=== PATIENT | female | born 1990 | race Caucasian/White ===

== ENCOUNTER 2016-11-28 06:53 | Emergency (ER) | payer SELFPAY ==
[~2016-11-28] VITALS: Ht 165.1 cm; Wt 77.0 kg
[2016-11-28 06:57] VITALS: BP 128/85; PULSE 63; RESP 16; TEMP 98.1; O2SAT 99
[2016-11-28] MEDS ORDERED: SODIUM CHLOR 0.9% 1000 ML INJ 1,000 ML IV SCH (07:19)
[2016-11-28] MEDS ORDERED: [UNRECOGNIZED DRUG - REMARK] PO (07:20)
[2016-11-28] MEDS ORDERED: FAMOTIDINE 20 MG/2 ML VIAL IV PUSH ONE (07:30)
[2016-11-28] MEDS ORDERED: LIDOCAINE VISCOUS 2% SOLN 15 ML UDC PO ONE (07:30)
[2016-11-28] MEDS ORDERED: ALUMINUM/MAGNESIUM/SIMETH 30 ML CUP PO ONE (07:30)
--- NOTE | 2016-11-28 07:47 | RADHPO ---
EXAM DATE/TIME: 11/28/2016 07:30 [facility] COMPARISON: No previous studies available for comparison. INDICATIONS : Chest pains, cough MEDICAL HISTORY : None. SURGICAL HISTORY : None. ENCOUNTER: Initial ACUITY: 1 week PAIN SCORE: 8/10 LOCATION: Bilateral chest FINDINGS: PA and lateral views of the chest demonstrate a normal-sized cardiac silhouette. There is no effusion , consolidation, or pneumothorax. The bones and soft tissues demonstrate no acute abnormality. CONCLUSION: No acute cardiopulmonary abnormality is identified. Shlomo Hernandez MD on November 28, 2016 at 7:45 Board Certified Radiologist. This report was verified electronically.
[2016-11-28 07:51] LABS: BLOOD, URINE TRACE (NEG); GLUCOSE,URINE NEG (NEG); KETONE, URINE NEG (NEG); NITRITE,URINE NEG (NEG)
[2016-11-28 07:52] LABS: AUTOMATED NEUTROPHIL # 5.6 TH/MM3 (1.8-7.7); BASOPHIL % 0.5 % (0.0-2.0); EOSINOPHIL # 0.2 TH/MM3 (0-0.4); EOSINOPHIL % 2.6 % (0.0-4.0); HEMATOCRIT 39.5 % (35.0-46.0); HEMO FLAGS DIFF FINAL; LYMPHOCYTE # 1.6 TH/MM3 (1.0-4.8); MEAN CELL VOLUME 89.8 FL (80.0-100.0); MEAN CORPUSCULAR HEMOGLOBIN 29.5 PG (27.0-34.0); MEAN CORPUSCULAR HGB CONC 32.9 % (32.0-36.0); MONO % 6.1 % (0.0-8.0); NEUT % 70.8 % (16.0-70.0); PLATELET COUNT 183 TH/MM3 (150-450); RED CELL DISTRIBUTION WIDTH 13.2 % (11.6-17.2); WHITE BLOOD COUNT 7.9 TH/MM3 (4.0-11.0)
[2016-11-28 07:57] LABS: METHOD OF COLLECTION CLEAN CATCH; URINE COLOR YELLOW (YELLW/STRAW)
[2016-11-28 07:58] LABS: BACTERIA, URINE MOD /hpf; COMMENT (UR) CULTURE INDICATED; CULTURE IF INDICATED CULTURE INDICATED; RBC, URINE 0-3 /hpf (0-3); SQUAMOUS EPITHELIAL CELL URINE > 8 /hpf (0-5)
[2016-11-28 07:59] LABS: CHLORIDE 108 MEQ/L (98-107); POTASSIUM 4.1 MEQ/L (3.5-5.1); SODIUM (NA) 142 MEQ/L (136-145)
[2016-11-28 08:03] LABS: ANION GAP 7 MEQ/L (5-15); BICARBONATE 26.6 MEQ/L (21.0-32.0); BLOOD UREA NITROGEN 12 MG/DL (7-18)
[2016-11-28 08:06] LABS: ALT (GPT) 21 U/L (10-53); AST (GOT) 23 U/L (15-37); GLOMERULAR FILTRATION RATE 81 ML/MIN (>89)
[2016-11-28 08:08] LABS: TOTAL BILIRUBIN ADULT 0.6 MG/DL (0.2-1.0)
[2016-11-28 08:09] LABS: ALKALINE PHOSPHATASE 60 U/L (45-117)
[2016-11-28] MEDS ORDERED: RANI150C PO (08:25)
[2016-11-28] MEDS ORDERED: CEPH-460 PO (08:25)
--- NOTE | 2016-11-28 08:25 | PD ---
HPI Chief Complaint: Abdominal Pain Time Seen by Provider: 07:10 Travel History International Travel<30 days: No Contact w/Intl Traveler<30days: No Traveled to known affect area: No History of Present Illness HPI 26-year-old woman who presents to the emergency department complaining of intermittent chest pain times years. She states she is only a couple times a year, since moving down to [place] several months ago she's noticed pain worse, every month or couple times a Memorial recently. She started getting an episode this past week with intermittent chest pain and tightness. She's of vomiting for the past 2 days as well. Review of systems also positive for shortness of breath as well as "feeling warm". She also has pain that started in her upper abdomen but radiates throughout the abdomen. No change in her bowel movements. No urinary symptoms. No vaginal discharge. Previous workups the same symptoms have not found any cause. History Past Medical History Narrative Medical Heart murmur Tetanus Vaccination: < 5 Years Influenza Vaccination: No LMP: 11/01/16 Social History Alcohol Use: No Tobacco Use: No (quit one month ago smoked 1 pack cigs every other day) Allergies-Medications (Allergen,Severity, Reaction): Coded Allergies: No Known Allergies (Unverified , 11/28/16) Reported Meds & Prescriptions Reported Meds & Active Scripts Active Reported [anxiety/increase HR] Unknown Strength Unknown Dose PO DIRECTED PRN Review of Systems Except as stated in HPI: all other systems reviewed are Neg Physical Exam Narrative GENERAL: Well-appearing 26-year-old woman, no acute distress. SKIN: Warm and dry. HEAD: Atraumatic. Normocephalic. CARDIOVASCULAR: Regular rate and rhythm. No murmur appreciated. RESPIRATORY: No accessory muscle use. Clear to auscultation. Breath sounds equal bilaterally. GASTROINTESTINAL: Abdomen flat and soft. Mild epigastric tenderness, minimal diffuse tenderness. MUSCULOSKELETAL: No obvious deformities. No edema. NEUROLOGICAL: Awake and alert. No obvious cranial nerve deficits. Motor grossly within normal limits. Normal speech. PSYCHIATRIC: Appropriate mood and affect; insight and judgment normal. Data Data Last Documented VS Vital Signs Date Time Temp Pulse Resp B/P Pulse Ox O2 Delivery O2 Flow Rate FiO2 11/28/16 07:12 16 11/28/16 06:57 98.1 63 128/85 99 Orders Complete Blood Count With Diff (11/28/16 07:01) Comprehensive Metabolic Panel (11/28/16 07:01) Lipase (11/28/16 07:01) Urinalysis - C+S If Indicated (11/28/16 07:01) Ed Urine Pregnancytest Poc (11/28/16 07:01) Electrocardiogram (11/28/16 ) Chest, Pa & Lat (11/28/16 ) Sodium Chlor 0.9% 1000 Ml Inj (Ns 1000 M (11/28/16 07:19) Famotidine Inj (Pepcid Inj) (11/28/16 07:30) Al-Mag Hy-Si 40-40-4 Mg/Ml Liq (Mag-Al P (11/28/16 07:30) Lidocaine 2% Viscous (Xylocaine 2% Visco (11/28/16 07:30) Urine Culture (11/28/16 07:30) Labs Laboratory Tests Test 11/28/16 11/28/16 07:30 07:39 Urine Collection Type CLEAN CATCH Urine Color YELLOW Urine Turbidity SLIGHT Urine pH 6.0 Urine Specific [place] 1.027 Urine Protein NEG mg/dL Urine Glucose (UA) NEG mg/dL Urine Ketones NEG mg/dL Urine Occult Blood TRACE Urine Nitrite NEG Urine Bilirubin NEG Urine Leukocyte Esterase TRACE Urine RBC 0-3 /hpf Urine WBC 25-49 /hpf Urine WBC Clumps OCC Urine Squamous Epithelial > 8 /hpf Cells Urine Bacteria MOD /hpf Microscopic Urinalysis Comment CULTURE INDICATED Urine Collection Time 07:30 White Blood Count 7.9 TH/MM3 Red Blood Count 4.40 MIL/MM3 Hemoglobin 13.0 GM/DL Hematocrit 39.5 % Mean Corpuscular Volume 89.8 FL Mean Corpuscular Hemoglobin 29.5 PG Mean Corpuscular Hemoglobin 32.9 % Concent Red Cell Distribution Width 13.2 % Platelet Count 183 TH/MM3 Mean Platelet Volume 8.4 FL Neutrophils (%) (Auto) 70.8 % Lymphocytes (%) (Auto) 20.0 % Monocytes (%) (Auto) 6.1 % Eosinophils (%) (Auto) 2.6 % Basophils (%) (Auto) 0.5 % Neutrophils # (Auto) 5.6 TH/MM3 Lymphocytes # (Auto) 1.6 TH/MM3 Monocytes # (Auto) 0.5 TH/MM3 Eosinophils # (Auto) 0.2 TH/MM3 Basophils # (Auto) 0.0 TH/MM3 CBC Comment DIFF FINAL Differential Comment Sodium Level 142 MEQ/L Potassium Level 4.1 MEQ/L Chloride Level 108 MEQ/L Carbon Dioxide Level 26.6 MEQ/L Anion Gap 7 MEQ/L Blood Urea Nitrogen 12 MG/DL Creatinine 0.85 MG/DL Estimat Glomerular Filtration 81 ML/MIN Rate Random Glucose 99 MG/DL Calcium Level 8.0 MG/DL Total Bilirubin 0.6 MG/DL Aspartate Amino Transf 23 U/L (AST/SGOT) Alanine Aminotransferase 21 U/L (ALT/SGPT) Alkaline Phosphatase 60 U/L Total Protein 6.7 GM/DL Albumin 3.3 GM/DL Lipase 129 U/L [facility] Medical Decision Making Medical Screen Exam Complete: Yes Emergency Medical Condition: Yes Interpretation(s) My review of EKG: Sinus bradycardia at a rate of 54, normal axis, normal intervals, no acute ischemia. LABS: CBC unremarkable. CMP unremarkable. Lipase normal. UA with significant pyuria. Chest x-ray negative. Differential Diagnosis Gastritis, peptic ulcer disease, pancreatitis, UTI, , other Narrative Course Medical decision making Is a well 26-year-old woman with intermittent chest pain ongoing for years. Worse over the past several months. She looks well. X-ray EKG are all unremarkable. Suspect gastritis. She has some pyuria. Denies any vaginal discharge or vaginal bleeding. I don't think a UTI fully explains her symptoms. Will treat for cystitis. Given the pyuria, diagnostic uncertainty, we'll add GC chlamydia to urine. Diagnosis Primary Impression: Gastritis Qualified Code: K29.00 - Other acute gastritis without hemorrhage Additional Impression: Cystitis Additional Instructions: Take ranitidine as prescribed. Use Tylenol as needed for pain. Take antibiotics as prescribed. Return to the emergency department for any new or worsening symptoms. Med/Other Pt SpecificInfo: Prescription(s) given Scripts Cephalexin (Keflex)500 Mg [id number] Mg PO Q8H 7 Days Ref 0 Prov:John Garcia MD 11/28/16 Ranitidine 150 Mg [id number] Mg PO BID #60 CAP Prov:John Garcia MD 11/28/16 Disposition: 01 DISCHARGE HOME Condition: Stable John Garcia MD Nov 28, 2016 08:25
[2016-11-28 09:06] VITALS: BP 137/82
[2016-11-28 13:52] LABS: CHLAMYDIA PCR NOT DETECTED (NOT DETECT); NEISSERIA PCR NOT DETECTED (NOT DETECT)
--- NOTE | 2016-11-28 23:13 | EKG ---
Date Performed: 11/28/2016 Time Performed: 07:59:12 PTAGE: 26 years EKG: Sinus bradycardia Normal ECG except for rate NO PREVIOUS TRACING DOCTOR: Candido Roblero Interpretating Date/Time 11/28/2016 23:11:56
== END 2016-11-28 09:14 | disposition home or self-care (01) ==
LOC: PHED 06:53
DX: K29.00 Acute gastritis without bleeding (principal); N30.90 Cystitis, unspecified without hematuria; R06.02 Shortness of breath; R10.84 Generalized abdominal pain; R00.1 Bradycardia, unspecified; R01.1 Cardiac murmur, unspecified; Z87.891 Personal history of nicotine dependence
CPT/HCPCS: 71020; 80053; 81001; 83690; 84703; 85025; 87086; 87491; 87591; 93005; 96361; 96374; 99285; J7030

== ENCOUNTER 2017-06-19 06:33 | Emergency (ER) | payer SELFPAY ==
[~2017-06-19] VITALS: Ht 165.1 cm; Wt 77.5 kg
[~2017-06-19 06:33] MED LIST: CEPH-460 PO; RANI150C PO; [UNRECOGNIZED DRUG - REMARK] PO
[2017-06-19 06:35] VITALS: BP 136/79; PULSE 68; RESP 16; TEMP 98; O2SAT 100
[2017-06-19] MEDS ORDERED: LORA-392 PO (07:02)
[2017-06-19 07:18] VITALS: BP_SYST 121; BP_SYST 124; BP_DIAS 72
[2017-06-19 07:19] VITALS: RESP 19; O2SAT 99
--- NOTE | 2017-06-19 07:20 | PD ---
HPI Chief Complaint: Chest Pain Time Seen by Provider: 07:17 Travel History International Travel<30 days: No Contact w/Intl Traveler<30days: No Traveled to known affect area: No History of Present Illness HPI 27-year-old female with history of anxiety attacks, presents to the ER today because of anxiety attacks yesterday with ongoing 5 out of 10 chest discomfort that did not go away with anxiety attacks. She denies any shortness of breath or any other symptoms. She admits she has been more stressed out than usual. She denies any fevers, vomiting, or any other symptoms. Modifying Factors: None Associated Signs & Symptoms: Chest discomfort, anxiety attacks Risk Factors: History of anxiety attacks PFSH Past Medical History Hx Anticoagulant Therapy: No Anxiety: Yes Heart Rhythm Problems: Yes (irregualr rhythm- PVC? and increase heart rate) Cardiovascular Problems: Yes (heart murmor) Diabetes: No Tetanus Vaccination: < 5 Years Influenza Vaccination: No ?: Not LMP: 06/21/17 Past Surgical History Cholecystectomy: Yes Social History Alcohol Use: No Tobacco Use: No Substance Use: No Allergies-Medications (Allergen,Severity, Reaction): Coded Allergies: No Known Allergies (Unverified , 06/19/17) Reported Meds & Prescriptions Reported Meds & Active Scripts Active Reported Ativan (Lorazepam) 0.5 Mg Tab 0.5 Mg PO Q8H PRN Review of Systems Except as stated in HPI: all other systems reviewed are Neg Physical Exam Narrative GENERAL: Well-developed young white female patient currently in mild distress. Awake and oriented 3. SKIN: Focused skin assessment warm/dry. HEAD: Atraumatic. Normocephalic. EYES: Pupils equal and round. No scleral icterus. No injection or drainage. ENT: No nasal bleeding or discharge. Mucous membranes pink and moist. NECK: Trachea midline. No JVD. CARDIOVASCULAR: Regular rate and rhythm. No murmur appreciated. Pulses are present and equal bilaterally. RESPIRATORY: No accessory muscle use. Clear to auscultation. Breath sounds equal bilaterally. GASTROINTESTINAL: Abdomen soft, non-tender, nondistended. Hepatic and splenic margins not palpable. MUSCULOSKELETAL: No obvious deformities. No clubbing. No cyanosis. No edema. NEUROLOGICAL: Awake and alert. No obvious cranial nerve deficits. Motor grossly within normal limits. Normal speech. PSYCHIATRIC: Appropriate mood and affect; insight and judgment normal. Data Data Last Documented VS Vital Signs Date Time Temp Pulse Resp B/P Pulse Ox O2 Delivery O2 Flow Rate FiO2 06/19/17 07:19 19 99 Room Air 06/19/17 07:18 124/72 121/72 06/19/17 06:35 98.0 68 Orders Electrocardiogram (06/19/17 07:17) Ckmb (Isoenzyme) Profile (06/19/17 07:17) Complete Blood Count With Diff (06/19/17 07:17) Comprehensive Metabolic Panel (06/19/17 07:17) D-Dimer (06/19/17 07:17) Magnesium (Mg) (06/19/17 07:17) Prothrombin Time / Inr (Pt) (06/19/17 07:17) Act Partial Throm Time (Ptt) (06/19/17 07:17) Troponin I (06/19/17 07:17) Chest, Single Ap (06/19/17 07:17) Ecg Monitoring (06/19/17 07:17) Bilateral Bp Monitoring (06/19/17 07:17) Iv Access Insert/Monitor (06/19/17 07:17) Oximetry (06/19/17 07:17) Oxygen Administration (06/19/17 07:17) Sodium Chloride 0.9% Flush (Ns Flush) (06/19/17 07:30) Ed Urine Pregnancytest Poc (06/19/17 07:17) CKMB (06/19/17 07:05) CKMB% (06/19/17 07:05) Labs Laboratory Tests Test 06/19/17 07:05 White Blood Count 5.9 TH/MM3 Red Blood Count 4.22 MIL/MM3 Hemoglobin 13.2 GM/DL Hematocrit 39.0 % Mean Corpuscular Volume 92.4 FL Mean Corpuscular Hemoglobin 31.3 PG Mean Corpuscular Hemoglobin 33.8 % Concent Red Cell Distribution Width 12.9 % Platelet Count 168 TH/MM3 Mean Platelet Volume 8.5 FL Neutrophils (%) (Auto) 52.9 % Lymphocytes (%) (Auto) 36.8 % Monocytes (%) (Auto) 7.3 % Eosinophils (%) (Auto) 2.7 % Basophils (%) (Auto) 0.3 % Neutrophils # (Auto) 3.1 TH/MM3 Lymphocytes # (Auto) 2.2 TH/MM3 Monocytes # (Auto) 0.4 TH/MM3 Eosinophils # (Auto) 0.2 TH/MM3 Basophils # (Auto) 0.0 TH/MM3 CBC Comment DIFF FINAL Differential Comment Prothrombin Time 10.8 SEC Prothromb Time International 1.0 RATIO Ratio Activated Partial 27.9 SEC Thromboplast Time D-Dimer Quantitative (PE/DVT) LESS THAN 0.19 MG/L FEU Sodium Level 142 MEQ/L Potassium Level 3.6 MEQ/L Chloride Level 108 MEQ/L Carbon Dioxide Level 27.7 MEQ/L Anion Gap 6 MEQ/L Blood Urea Nitrogen 9 MG/DL Creatinine 0.83 MG/DL Estimat Glomerular Filtration 83 ML/MIN Rate Random Glucose 88 MG/DL Calcium Level 8.5 MG/DL Magnesium Level 2.0 MG/DL Total Bilirubin 0.7 MG/DL Aspartate Amino Transf 20 U/L (AST/SGOT) Alanine Aminotransferase 18 U/L (ALT/SGPT) Alkaline Phosphatase 58 U/L Total Creatine Kinase 184 U/L Creatine Kinase MB 0.7 NG/ML Troponin I LESS THAN 0.02 NG/ML Total Protein 7.0 GM/DL Albumin 3.8 GM/DL MDM Medical Decision Making Medical Screen Exam Complete: Yes Emergency Medical Condition: Yes Medical Record Reviewed: Yes Interpretation(s) EKG shows NSR, no ST elevation or depression, and no arrhythmias. No significant T-wave inversions. No significant delta waves or QT prolongation. Laboratory Tests Test 06/19/17 07:05 Chloride Level 108 MEQ/L (98-107) Estimat Glomerular Filtration 83 ML/MIN (>89) Rate Troponin I LESS THAN 0.02 NG/ML (0.02-0.05) Last 24 hours Impressions Chest X-Ray 06/19/17 0717 Signed Impressions: Service Date/Time: Monday, June 19, 2017 07:13 - CONCLUSION: No acute cardiopulmonary disease. Doni Horne MD Differential Diagnosis Anxiety attack versus dysrhythmias versus ACS Narrative Course Cardiac enzymes are unremarkable. EKG did not show any signs of dysrhythmias or ST changes. Chest x-rays unremarkable. Patient had an anxiety attack prior to symptoms in his suspect that much of this is related to her anxiety attacks. My plan would be to release her with follow-up to primary care physician. Return for any worsening in symptoms as needed. The plan has been discussed with her and she states understanding. Diagnosis Primary Impression: Chest pain Additional Impression: Anxiety Referrals: [facility] Disposition: 01 DISCHARGE HOME Condition: Stable Jesús Sorensen MD Jun 19, 2017 07:20
[2017-06-19] MEDS ORDERED: SODIUM CHLORIDE 0.9% FLUSH 10 ML FLUSH IVF PRN (07:30)
--- NOTE | 2017-06-19 07:33 | RADRPT ---
EXAM DATE/TIME: 06/19/2017 07:13 [facility] COMPARISON: No previous studies available for comparison. INDICATIONS : Chest pain MEDICAL HISTORY : None. SURGICAL HISTORY : None. ENCOUNTER: Initial ACUITY: 2 days PAIN SCORE: 2/10 LOCATION: chest FINDINGS: A single view of the chest demonstrates the lungs to be symmetrically aerated without evidence of mas s, infiltrate or effusion. The cardiomediastinal contours are unremarkable. Osseous structures are intact. CONCLUSION: No acute cardiopulmonary disease. Doni Horne MD on June 19, 2017 at 7:30 Board Certified Radiologist. This report was verified electronically.
[2017-06-19 07:34] LABS: AUTOMATED NEUTROPHIL # 3.1 TH/MM3 (1.8-7.7); BASOPHIL % 0.3 % (0.0-2.0); EOSINOPHIL # 0.2 TH/MM3 (0-0.4); EOSINOPHIL % 2.7 % (0.0-4.0); HEMO FLAGS DIFF FINAL; LYMPH % 36.8 % (9.0-44.0); LYMPHOCYTE # 2.2 TH/MM3 (1.0-4.8); MEAN CELL VOLUME 92.4 FL (80.0-100.0); MEAN CORPUSCULAR HEMOGLOBIN 31.3 PG (27.0-34.0); MEAN CORPUSCULAR HGB CONC 33.8 % (32.0-36.0); MONO % 7.3 % (0.0-8.0); NEUT % 52.9 % (16.0-70.0); PLATELET COUNT 168 TH/MM3 (150-450); RED BLOOD COUNT 4.22 MIL/MM3 (4.00-5.30); RED CELL DISTRIBUTION WIDTH 12.9 % (11.6-17.2); WHITE BLOOD COUNT 5.9 TH/MM3 (4.0-11.0)
[2017-06-19 07:49] LABS: ALT (GPT) 18 U/L (10-53); ANION GAP 6 MEQ/L (5-15); AST (GOT) 20 U/L (15-37); BICARBONATE 27.7 MEQ/L (21.0-32.0); BLOOD UREA NITROGEN 9 MG/DL (7-18); CHLORIDE 108 MEQ/L (98-107); GLOMERULAR FILTRATION RATE 83 ML/MIN (>89); POTASSIUM 3.6 MEQ/L (3.5-5.1); SODIUM (NA) 142 MEQ/L (136-145)
[2017-06-19 07:53] LABS: ALKALINE PHOSPHATASE 58 U/L (45-117); CREATINE KINASE 184 U/L (26-192); TOTAL BILIRUBIN ADULT 0.7 MG/DL (0.2-1.0)
[2017-06-19 08:01] LABS: APTT (PATIENT) 27.9 SEC (24.3-30.1); PROTHROMBIN TIME - PATIENT 10.8 SEC (9.8-11.6)
[2017-06-19 08:05] LABS: CKMB 0.7 NG/ML (0.5-3.6)
--- NOTE | 2017-06-19 12:23 | EKG ---
Date Performed: 06/19/2017 Time Performed: 06:56:35 PTAGE: 27 years EKG: Sinus rhythm NORMAL ECG PREVIOUS TRACING : 11/28/2016 07.59 Compared to prior tracing no significant change DOCTOR: Jayme Sultana Interpretating Date/Time 06/19/2017 12:21:33
== END 2017-06-19 09:05 | disposition home or self-care (01) ==
LOC: NEPC 06:33
DX: R07.9 Chest pain, unspecified (principal); F41.9 Anxiety disorder, unspecified; Z79.899 Other long term (current) drug therapy
CPT/HCPCS: 71010; 80053; 82550; 82552; 83735; 84484; 84703; 85025; 85379; 85610; 85730; 93005; 99285

== ENCOUNTER 2018-01-17 19:05 | Emergency (ER) | payer MEDICAID ==
[~2018-01-17] VITALS: Ht 165.1 cm; Wt 89.9 kg
[~2018-01-17 19:05] MED LIST changes: -CEPH-460 PO; +LORA-392 PO; -RANI150C PO; -[UNRECOGNIZED DRUG - REMARK] PO
[2018-01-17 19:10] VITALS: BP 137/72; PULSE 106; RESP 18; TEMP 98.1; O2SAT 100
[2018-01-17] MEDS ORDERED: SERT-132 PO (19:56)
[2018-01-17] MEDS ORDERED: PREN29TA PO (19:56)
[2018-01-17] MEDS ORDERED: SODIUM CHLORID 0.9% 500 ML INJ 500 ML IV ONE (20:15)
[2018-01-17] MEDS ORDERED: SODIUM CHLORIDE 0.9% FLUSH 10 ML FLUSH IVF PRN (20:15)
--- NOTE | 2018-01-17 20:26 | PD ---
HPI Chief Complaint: Dizziness Time Seen by Provider: 20:10 Travel History International Travel<30 days: No Contact w/Intl Traveler<30days: No Traveled to known affect area: No History of Present Illness HPI Patient is a 27-year-old female at approximately 6 months gestational age presents emergency department for evaluation of very vague dizziness and fatigue symptoms. Patient also states that she has been having some blurred vision but no decreased acuity in both eyes. She states she just feels like there is a film over her vision. The symptoms have been going on for the past few days, gradually worsening. She [place] the [place] and is planning on moving her care here. Patient denies any abdominal pain nausea or vomiting denies any vaginal bleeding or vaginal discharge. States her is proceeding well, and she has not had any contractions either. No focalized weakness, no slurred speech, no difficulty with ambulation.. Symptoms moderate, for the past few days, gradually worsening, context and associated signs and symptoms as above. PFSH Past Medical History Hx Anticoagulant Therapy: No Anxiety: Yes Heart Rhythm Problems: Yes (irregualr rhythm- PVC? and increase heart rate) Cardiovascular Problems: Yes (heart murmor) Diabetes: No Diminished Hearing: No Tetanus Vaccination: Unknown Influenza Vaccination: No ?: Past Surgical History Cholecystectomy: Yes Social History Alcohol Use: No Tobacco Use: No Substance Use: No Allergies-Medications (Allergen,Severity, Reaction): Coded Allergies: morphine (Verified Allergy, Severe, convulsions, 01/17/18) Reported Meds & Prescriptions Reported Meds & Active Scripts Active Macrobid (Nitrofurantoin Monoh/Nitrofur Macro) 100 Mg Cap 100 Mg PO BID 7 Days Reported Plus Iron 29-1 mg ( Vit-Iron Carbonyl) 29 Mg Iron-1 Mg Tab 1 Tab PO DAILY Sertraline (Sertraline HCl) 50 Mg Tab 50 Mg PO DAILY Review of Systems Except as stated in HPI: all other systems reviewed are Neg Physical Exam Narrative GENERAL: Well-developed well-nourished, no obvious distress. SKIN: Focused skin assessment warm/dry. HEAD: Atraumatic. Normocephalic. EYES: Pupils equal and round. No scleral icterus. No injection or drainage. Extraocular movements intact, PERRLA ENT: No nasal bleeding or discharge. Mucous membranes pink and moist. NECK: Trachea midline. No JVD. CARDIOVASCULAR: Regular rate and rhythm. No murmur appreciated. RESPIRATORY: No accessory muscle use. Clear to auscultation. Breath sounds equal bilaterally. GASTROINTESTINAL: Abdomen soft, non-tender, gravid. Hepatic and splenic margins not palpable. GENITOURINARY: Deferred by patient. MUSCULOSKELETAL: No obvious deformities. No clubbing. No cyanosis. No edema. NEUROLOGICAL: Awake and alert. Cranial nerves II through XII are grossly intact and nonfocal, 5 out of 5 strength in all 4 extremities, cerebellar testing negative. PSYCHIATRIC: Appropriate mood and affect; insight and judgment normal. Data Data Last Documented VS Vital Signs Date Time Temp Pulse Resp B/P (MAP) Pulse Ox O2 Delivery O2 Flow Rate FiO2 01/17/18 23:47 84 18 130/76 (94) 99 01/17/18 21:43 Room Air 01/17/18 19:10 98.1 Orders Orders Electrocardiogram (01/17/18 20:11) Basic Metabolic Panel (Bmp) (01/17/18 20:11) Complete Blood Count With Diff (01/17/18 20:11) Magnesium (Mg) (01/17/18 20:11) Ecg Monitoring (01/17/18 20:11) Iv Access Insert/Monitor (01/17/18 20:11) Oximetry (01/17/18 20:11) Oxygen Administration (01/17/18 20:11) Sodium Chloride 0.9% Flush (Ns Flush) (01/17/18 20:15) Sodium Chlorid 0.9% 500 Ml Inj (Ns 500 M (01/17/18 20:15) Urinalysis - C+S If Indicated (01/17/18 20:11) Urine Culture (01/17/18 21:35) Ed Poc Ultrasound (01/17/18 ) Ed Discharge Order (01/17/18 22:32) Labs Laboratory Tests Test 01/17/18 21:35 White Blood Count 11.7 TH/MM3 Red Blood Count 3.50 MIL/MM3 Hemoglobin 11.1 GM/DL Hematocrit 32.3 % Mean Corpuscular Volume 92.2 FL Mean Corpuscular Hemoglobin 31.7 PG Mean Corpuscular Hemoglobin Concent 34.4 % Red Cell Distribution Width 13.2 % Platelet Count 205 TH/MM3 Mean Platelet Volume 7.6 FL Neutrophils (%) (Auto) 76.1 % Lymphocytes (%) (Auto) 17.1 % Monocytes (%) (Auto) 5.2 % Eosinophils (%) (Auto) 1.4 % Basophils (%) (Auto) 0.2 % Neutrophils # (Auto) 8.9 TH/MM3 Lymphocytes # (Auto) 2.0 TH/MM3 Monocytes # (Auto) 0.6 TH/MM3 Eosinophils # (Auto) 0.2 TH/MM3 Basophils # (Auto) 0.0 TH/MM3 CBC Comment DIFF FINAL Differential Comment Urine Color YELLOW Urine Turbidity CLEAR Urine pH 6.5 Urine Specific [place] 1.015 Urine Protein NEG mg/dL Urine Glucose (UA) NEG mg/dL Urine Ketones NEG mg/dL Urine Occult Blood NEG Urine Nitrite NEG Urine Bilirubin NEG Urine Urobilinogen 0.2 MG/DL Urine Leukocyte Esterase NEG Urine RBC 0-3 /hpf Urine WBC 3-5 /hpf Urine WBC Clumps RARE Urine Squamous Epithelial Cells 0-5 /hpf Urine Amorphous Sediment SMALL Urine Bacteria MOD /hpf Urine Mucus MANY /lpf Microscopic Urinalysis Comment CULTURE INDICATED Blood Urea Nitrogen 6 MG/DL Creatinine 0.38 MG/DL Random Glucose 89 MG/DL Calcium Level 8.2 MG/DL Magnesium Level 2.0 MG/DL Sodium Level 137 MEQ/L Potassium Level 3.4 MEQ/L Chloride Level 106 MEQ/L Carbon Dioxide Level 23.5 MEQ/L Anion Gap 8 MEQ/L Estimat Glomerular Filtration Rate 205 ML/MIN [facility] Medical Decision Making Medical Screen Exam Complete: Yes Emergency Medical Condition: Yes Differential Diagnosis Anemia, dehydration, acute intracranial abnormality highly likely, acute stroke highly likely, acute distress highly unlikely. Narrative Course Patient room to the emergency department, she has no complaints on her abdomen or vagina at all. Her symptoms are very vague and could represent anemia or dehydration from electrolyte abnormality. Urinalysis was positive for bacteria but no obvious infection. Her asymptomatic bacteria will be covered with Macrobid, the remainder of her workup in the emergency department was negative, bedside ultrasound was reassuring. The patient was reassured and urged to follow-up with an [facility] here in [facility], discussed taking vitamins and care including avoidance of smoking alcohol or illicit drugs. She is stable for discharge. Procedures Procedure Narrative Bedside ultrasound abdomen: Transabdominal views obtained of the uterus, single intrauterine , positive motion, heart tones to the 150s by M-mode, no gross abnormality, proximal 22 weeks gestational age by biparietal diameter Diagnosis Primary Impression: Dizziness Med/Other Pt SpecificInfo: Prescription(s) given Scripts Nitrofurantoin Monohydrate Macrocrystals (Macrobid) 100 Mg Cap 100 MG PO BID for Infection for 7 Days, #14 CAP 0 Refills Prov: Rishi Menendez MD 01/17/18 Disposition: 01 DISCHARGE HOME Condition: Stable Rishi Menendez MD Jan 17, 2018 20:26
[2018-01-17 21:43] VITALS: BP 121/65; PULSE 88; RESP 16; O2SAT 100
[2018-01-17 21:48] LABS: BILIRUBIN, URINE NEG (NEG); BLOOD, URINE NEG (NEG); GLUCOSE,URINE NEG (NEG); KETONE, URINE NEG (NEG); NITRITE,URINE NEG (NEG); PH, URINE 6.5 (5.0-8.5); URINE COLOR YELLOW (YELLW/STRAW); URINE LEUKOCYTE ESTERASE NEG (NEG)
[2018-01-17 21:49] LABS: AUTOMATED NEUTROPHIL # 8.9 TH/MM3 (1.8-7.7); BASOPHIL % 0.2 % (0.0-2.0); EOSINOPHIL # 0.2 TH/MM3 (0-0.4); EOSINOPHIL % 1.4 % (0.0-4.0); HEMATOCRIT 32.3 % (35.0-46.0); HEMOGLOBIN 11.1 GM/DL (11.6-15.3); LYMPH % 17.1 % (9.0-44.0); MEAN CELL VOLUME 92.2 FL (80.0-100.0); MEAN CORPUSCULAR HEMOGLOBIN 31.7 PG (27.0-34.0); MEAN CORPUSCULAR HGB CONC 34.4 % (32.0-36.0); MEAN PLATELET VOLUME 7.6 FL (7.0-11.0); MONO % 5.2 % (0.0-8.0); MONOCYTE # 0.6 TH/MM3 (0-0.9); NEUT % 76.1 % (16.0-70.0); PLATELET COUNT 205 TH/MM3 (150-450); RED CELL DISTRIBUTION WIDTH 13.2 % (11.6-17.2); WHITE BLOOD COUNT 11.7 TH/MM3 (4.0-11.0)
[2018-01-17 21:58] LABS: AMORPHOUS SEDIMENT, URINE SMALL; BACTERIA, URINE MOD /hpf; MUCUS URINE MANY /lpf (OCC); RBC, URINE 0-3 /hpf (0-3); SQUAMOUS EPITHELIAL CELL URINE 0-5 /hpf (0-5); WHITE BLOOD CELL CLUMPS RARE
[2018-01-17 22:00] LABS: CALCIUM 8.2 MG/DL (8.5-10.1)
[2018-01-17 22:01] LABS: BICARBONATE 23.5 MEQ/L (21.0-32.0)
[2018-01-17 22:04] LABS: CREATININE 0.38 MG/DL (0.50-1.00)
[2018-01-17] MEDS ORDERED: MACR100C2 PO (23:15)
[2018-01-17 23:47] VITALS: BP 130/76
--- NOTE | 2018-01-18 23:34 | EKG ---
Date Performed: 01/17/2018 Time Performed: 20:34:38 PTAGE: 27 years EKG: Sinus rhythm NORMAL ECG PREVIOUS TRACING : 06/19/2017 06.56 Since the previous tracing, no significant change noted DOCTOR: Sarwat Saleem Interpretating Date/Time 01/18/2018 23:31:57
== END 2018-01-17 23:48 | disposition home or self-care (01) ==
LOC: PHED 19:05
DX: R01.1 Cardiac murmur, unspecified (principal); O26.892 Other specified pregnancy related conditions, second trimester; F41.9 Anxiety disorder, unspecified; H53.8 Other visual disturbances; R42 Dizziness and giddiness; Z3A.22 22 weeks gestation of pregnancy; Z88.5 Allergy status to narcotic agent; B96.89 Other specified bacterial agents as the cause of diseases classified elsewhere
CPT/HCPCS: 80048; 81001; 83735; 85025; 87086; 93005; 96360; 99284; J7040

== ENCOUNTER 2018-03-02 08:33 | Emergency (ER) | payer OTHER, MEDICAID ==
[~2018-03-02 08:33] MED LIST changes: -LORA-392 PO; +MACR100C2 PO; +PREN29TA PO; +SERT-132 PO
[2018-03-02 08:35] VITALS: BP 153/89; PULSE 113; RESP 18; TEMP 98.6; O2SAT 100
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
[2018-03-02 09:36] LABS: AUTOMATED NEUTROPHIL # 7.8 TH/MM3 (1.8-7.7); BASOPHIL % 0.1 % (0.0-2.0); EOSINOPHIL # 0.1 TH/MM3 (0-0.4); EOSINOPHIL % 1.2 % (0.0-4.0); HEMATOCRIT 33.9 % (35.0-46.0); HEMOGLOBIN 11.8 GM/DL (11.6-15.3); LYMPH % 14.4 % (9.0-44.0); LYMPHOCYTE # 1.5 TH/MM3 (1.0-4.8); MEAN CELL VOLUME 89.8 FL (80.0-100.0); MEAN CORPUSCULAR HEMOGLOBIN 31.2 PG (27.0-34.0); MEAN CORPUSCULAR HGB CONC 34.8 % (32.0-36.0); MONO % 6.6 % (0.0-8.0); MONOCYTE # 0.7 TH/MM3 (0-0.9); NEUT % 77.7 % (16.0-70.0); PLATELET COUNT 187 TH/MM3 (150-450); RED BLOOD COUNT 3.77 MIL/MM3 (4.00-5.30); RED CELL DISTRIBUTION WIDTH 13.3 % (11.6-17.2); WHITE BLOOD COUNT 10.1 TH/MM3 (4.0-11.0)
[2018-03-02 09:45] LABS: BACTERIA, URINE MANY /hpf; BILIRUBIN, URINE NEG (NEG); BLOOD, URINE NEG (NEG); GLUCOSE,URINE NEG (NEG); HYALINE CAST, URINE 2 /lpf (RARE); KETONE, URINE NEG (NEG); NITRITE,URINE NEG (NEG); SQUAMOUS EPITHELIAL CELL URINE 10 /hpf (0-5); TRANSITIONAL EPI CELLS, URINE <1 /hpf; URINE COLOR LIGHT-YELLOW (YELLW/STRAW); URINE LEUKOCYTE ESTERASE TRACE (NEG)
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
[2018-03-02] MEDS ORDERED: MACR100C2 PO (11:29)
[2018-03-02] MEDS ORDERED: ACETAMINOPHEN 325 MG TAB PO ONE (11:30)
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
== END 2018-03-02 12:28 | disposition home or self-care (01) ==
LOC: NEPE 08:33 → HOBED 12:28
DX: O9A.213 Injury, poisoning and certain other consequences of external causes complicating pregnancy, third trimester (principal); S39.012A Strain of muscle, fascia and tendon of lower back, initial encounter; V89.2XXA Person injured in unspecified motor-vehicle accident, traffic, initial encounter; Y92.410 Unspecified street and highway as the place of occurrence of the external cause; O23.13 Infections of bladder in pregnancy, third trimester; N30.90 Cystitis, unspecified without hematuria; O99.343 Other mental disorders complicating pregnancy, third trimester; F41.9 Anxiety disorder, unspecified; Z87.891 Personal history of nicotine dependence
CPT/HCPCS: 72100; 81001; 83030; 85025; 87086; 99283

== ENCOUNTER 2018-04-06 11:49 | Emergency (ER) | payer MEDICAID ==
--- NOTE | 2018-04-06 12:49 | PD ---
HPI Chief Complaint pelvic pain Date Seen: April 06, 2018 Time Seen: 12:50 Travel History International Travel<30 Days: No Contact w/Intl Traveler<30Days: No Known Affected Area: No History of Present Illness HPI Patient is 27-year-old female at 34/5 weeks gestation presented to OB triage due to 1 week history of pelvic pain worsened with movement and sciatic left leg pain. Patient denies any loss of fluid or vaginal bleeding. Endorses movement. Patient also reports Weeks Gestation: 34 Para: 2 : 3 History Past Medical History Narrative Medical Sciatica Obstetric History Obstetric History no complications with this thus far SVDx2, uncomplicated Past Surgical History Surgical History: No Previous Surgery Family History Family History: Negative Allergies-Medications (Allergen,Severity, Reaction): Coded Allergies: morphine (Verified Allergy, Severe, convulsions, 04/06/18) Home Meds Active Scripts Nitrofurantoin Monohydrate Macrocrystals (Macrobid) 100 Mg Cap, 100 MG PO BID for Infection for 7 Days, #14 CAP 0 Refills Prov:Hank Plunkett MD 03/02/18 Nitrofurantoin Monohydrate Macrocrystals (Macrobid) 100 Mg Cap, 100 MG PO BID for Infection for 7 Days, #14 CAP 0 Refills Prov:Rishi Menendez MD 01/17/18 Reported Medications Vit-Iron Carbonyl ( Plus Iron 29-1 mg) 29 Mg Iron-1 Mg Tab, 1 TAB PO DAILY for Nutritional Supplement, #30 TAB 0 Refills 01/17/18 Sertraline (Sertraline) 50 Mg Tab, 50 MG PO DAILY, #30 TAB 0 Refills 01/17/18 Review of Systems Except as stated in HPI: all other systems reviewed are Neg (per HPI) Physical Exam Narrative GENERAL: Well-nourished, well-developed patient. SKIN: Warm and dry. HEAD: Normocephalic and atraumatic. EYES: No scleral icterus. No injection or drainage. ENT: No nasal drainage noted. Mucous membranes pink. Airway patent. NECK: Supple, trachea midline. No JVD. CARDIOVASCULAR: Regular rate and rhythm without murmurs, gallops, or rubs. RESPIRATORY: Breath sounds equal bilaterally. No accessory muscle use. BREASTS: Bilateral exam showed no masses , no retractions, no nipple discharge. ABDOMEN/GI: Abdomen soft, non-tender, bowel sounds present, no rebound, no guarding Gravid to 26 weeks size GENITOURINARY: External Genitalia: intact and normal in appearance Membranes: intact Uterine Contractions: none FHT's: Category: 1 Baseline: 130 Reactive: yes Variability: moderate Decels: none EXTREMITIES: No cyanosis or edema. BACK: Nontender without obvious deformity. No CVA tenderness. NEUROLOGICAL: Awake and alert. Motor and sensory grossly within normal limits. Five out of 5 muscle strength in all muscle groups. Normal speech. Data Data Vital Signs Reviewed: Yes [facility] Medical Record Reviewed: Yes Plan Patient is 27-year-old female at 34/5 weeks gestation presented to OB triage due to 1 week history of pelvic pain worsened with movement and sciatic left leg pain. IUP at 34/5 weeks gestation 1. encourage oral hydration 2. Category 1 monitoring 3. UA negative 4. pelvic likely due to round ligament pain and sciatica pain 5. c/w tylenol for pain relief 6. Patient advised to f/u with OB doctor for routine care. GOGO Bowen Diagnosis Diagnosis: Primary Impression: 34 weeks gestation of Additional Impression: Sciatic leg pain Disposition: DISCHARGE HOME Condition: Stable Ralph Wright MD, R1 April 06, 2018 12:49
[2018-04-06 13:06] LABS: BILIRUBIN, URINE NEG (NEG); BLOOD, URINE NEG (NEG); GLUCOSE,URINE NEG (NEG); KETONE, URINE NEG (NEG); MUCUS URINE FEW /lpf (OCC); NITRITE,URINE NEG (NEG); SQUAMOUS EPITHELIAL CELL URINE 1 /hpf (0-5); URINE COLOR YELLOW (YELLW/STRAW); URINE LEUKOCYTE ESTERASE NEG (NEG)
== END 2018-04-06 14:45 | disposition home or self-care (01) ==
LOC: HOBED 11:49
DX: O26.893 Other specified pregnancy related conditions, third trimester (principal); R10.2 Pelvic and perineal pain; M54.32 Sciatica, left side; Z3A.34 34 weeks gestation of pregnancy
CPT/HCPCS: 59025; 81001